=== PATIENT | female | born 2000 | race Caucasian/White ===

== ENCOUNTER 2024-08-08 17:39 | Emergency (ER) | payer SELFPAY ==
[2024-08-08 17:51] VITALS: BMI 27.3
[2024-08-08 20:39] LABS: EPI CELLS >36 /uL (0-25.1); HYALINE CASTS 1 /uL (0-3.1); PH,URINE 6.5 (5.0-8.0); URINE APPEARANCE CLOUDY; URINE BACTERIA 3737 /uL (0-1359); URINE BILIRUBIN NEGATIVE (NEGATIVE); URINE COLOR YELLOW; URINE GLUCOSE (UA) NEGATIVE (NEGATIVE); URINE KETONE NEGATIVE (NEGATIVE); URINE LEUK ESTERASE 1+ (NEGATIVE); URINE NITRITE NEGATIVE (NEGATIVE); URINE PROTEIN 1+ (NEGATIVE); URINE RBC 8 /uL (0-23.9); URINE WBC 36 /uL (0-25.8)
[2024-08-08 22:11] VITALS: BP 99/54; PULSE 73; RESP 17; TEMP 98.7
[2024-08-08 23:40] LABS: URINE CRYSTALS NONE SEEN /hpf
== END 2024-08-08 22:19 | disposition home or self-care (01) ==
LOC: JER 17:39
DX: O23.42 Unspecified infection of urinary tract in pregnancy, second trimester (principal); Z3A.16 16 weeks gestation of pregnancy
CPT/HCPCS: 81003; 87086; 99284-25